=== PATIENT | male | born 1955 | race Caucasian/White ===

== ENCOUNTER 2017-11-03 07:23 | Day surgery (SDC) | payer MEDICAID, MEDICARE ==
[2017-11-03] MEDS ORDERED: LIDOCAINE HCL 1% MPF SOL ONE (08:11)
[2017-11-03] MEDS ORDERED: PROPOFOL 500 MG/50 ML EMU IV ONE (08:11)
[2017-11-03 10:18] VITALS: BP 144/73; PULSE 80; RESP 18; TEMP 97.4; O2SAT 92
== END 2017-11-03 10:35 | disposition home or self-care (01) | DRG 951 ==
LOC: SURG 07:23
PROVIDERS: ATTEND Surgery
DX: Z12.11 Encounter for screening for malignant neoplasm of colon (principal); K63.5 Polyp of colon; Z86.010 Personal history of colon polyps
CPT/HCPCS: J2001; J2704